=== PATIENT | female | born 1935 | race Two or more races ===

== ENCOUNTER 2022-06-19 08:38 | Emergency (ER) | payer OTHER, BC ==
[~2022-06-19] VITALS: Ht 167.6 cm; Wt 53.1 kg
--- NOTE | 2022-06-19 08:49 | NUR ---
pt came in due to fall. pt has dementia. a known hypertensive patient. pt is AOx2.
--- NOTE | 2022-06-19 09:07 | NUR ---
still trying to contact facility ([facility]), NO ONE ANSWERING PHONE.
--- NOTE | 2022-06-19 09:08 | NUR ---
EMD MADE AWARE OF THE BP FROM 179/81 TO 163/73 LATEST.
--- NOTE | 2022-06-19 09:10 | NUR ---
PT AT CT SCAN VIA [facility]IAN
--- NOTE | 2022-06-19 09:20 | NUR ---
SON AT BEDSIDE
--- NOTE | 2022-06-19 09:20 | NUR ---
[facility] [phone]
--- NOTE | 2022-06-19 09:34 | NUR ---
PT BACK TO BED [address] SON AT BEDSIDE.
[2022-06-19] MEDS ORDERED: AMLODIPINE BESYLATE 5 MG TABLET PO ONE (10:00)
--- NOTE | 2022-06-19 10:02 | NUR ---
[facility] ETA 1100 WITH [facility]
[2022-06-19] MEDS ORDERED: AMLODIPINE BESYLATE 5 MG TABLET ONE (10:11)
[2022-06-19 11:15] VITALS: BP 168/77
--- NOTE | 2022-06-19 11:16 | NUR ---
Patient discharged to home in stable condition. Written and verbal after care instructions given to patient. transported back to [facility] in stable condition.
== END 2022-06-19 11:18 ==
LOC: ER 08:47
DX: R03.0 Elevated blood-pressure reading, without diagnosis of hypertension (principal); F03.90 Unspecified dementia, unspecified severity, without behavioral disturbance, psychotic disturbance, mood disturbance, and anxiety; Z88.0 Allergy status to penicillin; Z88.2 Allergy status to sulfonamides; Z88.8 Allergy status to other drugs, medicaments and biological substances; W18.30XA Fall on same level, unspecified, initial encounter; Y93.89 Activity, other specified; Y92.89 Other specified places as the place of occurrence of the external cause; Y99.8 Other external cause status
CPT/HCPCS: 70450-TC; 72125-TC

== ENCOUNTER 2023-02-12 14:09 | Emergency (ER) | payer OTHER, BC ==
[~2023-02-12] VITALS: Ht 170.2 cm; Wt 76.2 kg
[2023-02-12 14:14] VITALS: BP 137/66; TEMP 98.7; O2SAT 98
[2023-02-12] MEDS ORDERED: TRIA80CR12 TP (15:49)
[2023-02-12] MEDS ORDERED: METF-440 PO (15:49)
[2023-02-12] MEDS ORDERED: CYAN-51 PO (15:49)
[2023-02-12] MEDS ORDERED: ERYT3.5O9 EACHEYE (15:49)
[2023-02-12] MEDS ORDERED: [UNRECOGNIZED DRUG - OTHER] PO (15:49)
[2023-02-12] MEDS ORDERED: FERR325T28 PO (15:49)
[2023-02-12] MEDS ORDERED: DOCU100C36 PO (15:49)
[2023-02-12] MEDS ORDERED: MIRT-91 PO (15:49)
[2023-02-12] MEDS ORDERED: POLY10DR3 EACHEYE (15:49)
[2023-02-12] MEDS ORDERED: VIT PO (15:49)
[2023-02-12] MEDS ORDERED: ACET-868 PO (15:49)
[2023-02-12] MEDS ORDERED: MAGN400O6 PO (15:49)
[2023-02-12] MEDS ORDERED: CAL PO (15:49)
[2023-02-12] MEDS ORDERED: TRAZ-257 PO (15:49)
[2023-02-12] MEDS ORDERED: MENT113O TP (15:49)
[2023-02-12] MEDS ORDERED: MAG-135 PO (15:49)
[2023-02-12] MEDS ORDERED: LOPE2TAB25 PO (15:49)
[2023-02-12] MEDS ORDERED: CHOL200059 PO (15:49)
[2023-02-12] MEDS ORDERED: [UNRECOGNIZED DRUG - OTHER] (15:54)
[2023-02-12 16:28] LABS: BASOPHILS % (AUTO) 0.6 % (0.0-2.0); EOSINOPHILS # (AUTO) 0.2 K/uL (0.0-0.7); EOSINOPHILS % (AUTO) 2.6 % (0.0-6.0); HEMATOCRIT 38 % (33-45); HEMOGLOBIN 12.5 g/dL (11.5-14.8); LYMPHOCYTES # (AUTO) 1.9 K/uL (0.8-4.8); LYMPHOCYTES % (AUTO) 24.8 % (20.0-44.0); MEAN CORPUSCULAR HEMOGLOBIN 31 PG (26.0-33.0); MEAN CORPUSCULAR HGB CONC 32 g/dl (31.0-36.0); MEAN CORPUSCULAR VOLUME 96 fL (82-100); MONOCYTES # (AUTO) 0.7 K/uL (0.1-1.30); MONOCYTES % (AUTO) 8.8 % (2.0-12.0); NEUTROPHILS # (AUTO) 4.9 K/uL (1.8-8.9); NEUTROPHILS % (AUTO) 63.2 % (43.0-81.0); PLATELET COUNT (AUTO) 219 K/uL (150-450); RED CELL DISTRIBUTION WIDTH 15.8 % (11.5-15.0); WHITE BLOOD COUNT (AUTO) 7.8 K/uL (4.3-11.0)
[2023-02-12 16:39] LABS: CALCIUM, SERUM 9.7 mg/dL (8.5-10.1); CARBON DIOXIDE 25 mmol/L (21-32); CHLORIDE 100 mmol/L (98-107); CREATININE 0.6 mg/dL (0.6-1.3); GLUCOSE 152 mg/dL (74-106); POTASSIUM 5.5 mmol/L (3.5-5.1); SODIUM SERUM 135 mmol/L (136-145); UREA NITROGEN, BLOOD 17 mg/dL (7-18)
[2023-02-12 16:45] LABS: ALANINE AMINOTRANSFERASE 42 U/L (12-78); ALBUMIN 3.3 g/dL (3.4-5.0); ALKALINE PHOSPHATASE 97 U/L (46-116); ASPARTATE AMINOTRANSFERASE 41 U/L (15-37); BILIRUBIN,TOTAL 0.4 mg/dL (0.2-1.0); TOTAL PROTEIN, SERUM 7.8 g/dL (6.4-8.2)
[2023-02-12 16:56] LABS: LACTIC ACID 2.9 mmol/L (0.4-2.0)
[2023-02-12] MEDS ORDERED: IV NS 0.9% 1,000 ML BAG IV ONE (17:00)
== END 2023-02-12 20:46 | disposition short-term general hospital (02) ==
LOC: ER 14:24
DX: R55 Syncope and collapse (principal); E87.5 Hyperkalemia; E87.20 Acidosis, unspecified; I10 Essential (primary) hypertension; Z88.0 Allergy status to penicillin; Z88.2 Allergy status to sulfonamides; Z88.8 Allergy status to other drugs, medicaments and biological substances; Z79.84 Long term (current) use of oral hypoglycemic drugs; Z79.899 Other long term (current) drug therapy
CPT/HCPCS: 99285; 96360; 70450; 71045; 93005; 85025; 80048; 83605 ×2; 80076; 36415; 84484; J7030